=== PATIENT | female | born 1995 | race Caucasian/White ===

== ENCOUNTER 2018-06-17 19:40 | Outpatient (CLI) | payer OTHER ==
[2018-06-17 20:26] LABS: APPEARANCE,URINE CLEAR; BILIRUBIN,URINE NEGATIVE (NEGATIVE); COLOR,URINE YELLOW; GLUCOSE, URINE NEGATIVE (NEGATIVE); KETONES,URINE NEGATIVE (NEGATIVE); LEUKOCYTE ESTERASE,URINE NEGATIVE (NEGATIVE); NITRITE,URINE NEGATIVE (NEGATIVE); PROTEIN,URINE NEGATIVE (NEGATIVE); URINE SPECIFIC GRAVITY 1.012; UROBILINOGEN,URINE NEGATIVE mg/dL (<2.0)
[2018-06-17 20:59] LABS: URINE AMPHETAMINES SCREEN NEGATIVE; URINE BARBITURATES SCREEN NEGATIVE; URINE BENZODIAZEPINES SCREEN NEGATIVE; URINE COCAINE SCREEN NEGATIVE; URINE MARIJUANA (THC) SCREEN NEGATIVE; URINE METHADONE SCREEN NEGATIVE; URINE PHENCYCLIDINE SCREEN NEGATIVE
== END 2018-06-17 20:54 | disposition home or self-care (01) ==
LOC: LC 19:40
PROVIDERS: ATTEND Obstetrics & Gynecology
DX: O46.93 Antepartum hemorrhage, unspecified, third trimester (principal); Z3A.29 29 weeks gestation of pregnancy
CPT/HCPCS: 80307; 81001

== ENCOUNTER 2018-07-30 15:53 | Outpatient (CLI) | payer OTHER ==
[2018-07-30 17:07] LABS: APPEARANCE,URINE SLIGHTLY-CLOUDY; BILIRUBIN,URINE NEGATIVE (NEGATIVE); COLOR,URINE YELLOW; GLUCOSE, URINE NEGATIVE (NEGATIVE); KETONES,URINE NEGATIVE (NEGATIVE); LEUKOCYTE ESTERASE,URINE LARGE (NEGATIVE); NITRITE,URINE NEGATIVE (NEGATIVE); PROTEIN,URINE NEGATIVE (NEGATIVE); URINE SPECIFIC GRAVITY 1.006; UROBILINOGEN,URINE NEGATIVE mg/dL (<2.0)
--- NOTE | 2018-07-30 17:14 | Non Stress Test Report ---
Non Stress Test Datetime Report Generated by CPN: 07/30/2018 17:14 DEMOGRAPHIC EGA NST: 35.3 INDICATION Indication for Study: Ordered by Provider VITAL SIGNS Temperature - NST: 98.4 Pulse - NST: 90 RESP - NST: 18 NBPSYS NST: 116 NBPDIA NST: 71 MONITORING Monitor Explained: Monitor Explained; Test Explained; Patient Verbalized Understanding Time on Monitor: 07/30/2018 16:15 Time off Monitor: 07/30/2018 17:04 NST Duration: 49 NST INTERVENTIONS NST Interventions: PO Hydration Physician Notified NST: A Pendleton CNM BABY A: [id number] BABY A Movement : Present Contraction Frequency : 0 FHR Baseline : 130 Accelerations : 15X15 Decelerations : None Variability : Moderate 6-25bpm NST Review: Meets Criteria for Reactive NST NST Review and Verified By : Joel De Los Santos RN NST Results: Reactive NST REPORT Report Trigger: Send Report
[2018-07-30 17:29] LABS: URINE AMPHETAMINES SCREEN NEGATIVE; URINE BARBITURATES SCREEN NEGATIVE; URINE BENZODIAZEPINES SCREEN NEGATIVE; URINE COCAINE SCREEN NEGATIVE; URINE MARIJUANA (THC) SCREEN NEGATIVE; URINE METHADONE SCREEN NEGATIVE; URINE PHENCYCLIDINE SCREEN NEGATIVE
== END 2018-07-30 17:14 | disposition home or self-care (01) ==
LOC: LC 15:53
PROVIDERS: ATTEND Obstetrics & Gynecology
PROC: 4A1HXCZ Monitoring of Products of Conception, Cardiac Rate, External Approach (ICD-10-PCS; principal; 2018-07-30)
DX: O47.03 False labor before 37 completed weeks of gestation, third trimester (principal); O46.93 Antepartum hemorrhage, unspecified, third trimester; Z3A.35 35 weeks gestation of pregnancy
CPT/HCPCS: 59025; 80307; 81001

== ENCOUNTER 2018-08-23 17:11 | Outpatient (CLI) | payer OTHER ==
[2018-08-23 17:49] LABS: APPEARANCE,URINE SLIGHTLY-CLOUDY; BILIRUBIN,URINE NEGATIVE (NEGATIVE); COLOR,URINE YELLOW; GLUCOSE, URINE NEGATIVE (NEGATIVE); KETONES,URINE NEGATIVE (NEGATIVE); LEUKOCYTE ESTERASE,URINE LARGE (NEGATIVE); NITRITE,URINE NEGATIVE (NEGATIVE); PROTEIN,URINE NEGATIVE (NEGATIVE); URINE SPECIFIC GRAVITY 1.016; UROBILINOGEN,URINE NEGATIVE mg/dL (<2.0)
--- NOTE | 2018-08-23 17:55 | Non Stress Test Report ---
Non Stress Test Datetime Report Generated by CPN: 08/23/2018 17:54 DEMOGRAPHIC Test Number: 2 EGA NST: 38.6 INDICATION Indication for Study: Ordered by Provider MONITORING Monitor Explained: Monitor Explained; Test Explained; Patient Verbalized Understanding Time on Monitor: 08/23/2018 17:29 Time off Monitor: 08/23/2018 17:53 NST Duration: 24 NST INTERVENTIONS BABY A: [id number] BABY A Movement : Present Contraction Frequency : 4-5 FHR Baseline : 140 Accelerations : 15X15 Decelerations : None Variability : Moderate 6-25bpm NST Review: Meets Criteria for Reactive NST NST Review and Verified By : S Ciara RNC NST Results: Reactive NST REPORT Report Trigger: Send Report
[2018-08-23 18:03] LABS: URINE AMPHETAMINES SCREEN NEGATIVE; URINE BARBITURATES SCREEN NEGATIVE; URINE BENZODIAZEPINES SCREEN NEGATIVE; URINE COCAINE SCREEN NEGATIVE; URINE MARIJUANA (THC) SCREEN NEGATIVE; URINE METHADONE SCREEN NEGATIVE; URINE PHENCYCLIDINE SCREEN NEGATIVE
== END 2018-08-23 18:00 | disposition home or self-care (01) ==
LOC: LC 17:11
PROVIDERS: ATTEND Obstetrics & Gynecology
PROC: 4A1HXCZ Monitoring of Products of Conception, Cardiac Rate, External Approach (ICD-10-PCS; principal; 2018-08-23)
DX: O47.1 False labor at or after 37 completed weeks of gestation (principal); Z3A.38 38 weeks gestation of pregnancy
CPT/HCPCS: 59025; 80307; 81005; 84112

== ENCOUNTER 2018-08-30 14:39 | Outpatient (CLI) | payer OTHER | END 2018-08-30 15:33 | disposition home or self-care (01) | LOC: LC 14:39 | PROVIDERS: ATTEND Student in an Organized Health Care Education/Training Program | PROC: 4A1HXCZ Monitoring of Products of Conception, Cardiac Rate, External Approach (ICD-10-PCS; principal; 2018-08-30) | DX: O47.1 False labor at or after 37 completed weeks of gestation (principal); Z3A.39 39 weeks gestation of pregnancy | CPT/HCPCS: 59025 ==

== ENCOUNTER 2018-08-31 10:19 | Inpatient (IN) | payer OTHER ==
[2018-08-31] MEDS ORDERED: PENICILLIN G POTASSIUM 5,000,000 UNIT in DEXTROSE 5%-WATER 100 ML IV ONE (10:42)
[2018-08-31] MEDS ORDERED: RINGERS SOLUTION,LACTATED 300 ML IV ONE (10:42)
[2018-08-31] MEDS ORDERED: RINGERS SOLUTION,LACTATED 1,000 ML IV PRN (10:42)
[2018-08-31] MEDS ORDERED: OXYTOCIN/NORMAL SALINE 20 UNIT/1,000 ML RTUINJ IV PRN ×2 (10:46→14:51)
[2018-08-31 11:00] LABS: APPEARANCE,URINE SLIGHTLY-CLOUDY; BILIRUBIN,URINE NEGATIVE (NEGATIVE); COLOR,URINE YELLOW; GLUCOSE, URINE NEGATIVE (NEGATIVE); KETONES,URINE NEGATIVE (NEGATIVE); LEUKOCYTE ESTERASE,URINE NEGATIVE (NEGATIVE); NITRITE,URINE NEGATIVE (NEGATIVE); PROTEIN,URINE NEGATIVE (NEGATIVE); URINE SPECIFIC GRAVITY 1.016; UROBILINOGEN,URINE NEGATIVE mg/dL (<2.0)
[2018-08-31] MEDS ORDERED: MISOPROSTOL 0.2 MG TABLET ONE (11:11)
[2018-08-31] MEDS ORDERED: OXYTOCIN 10 UNIT/ML VIAL ONE (11:11)
[2018-08-31] MEDS ORDERED: PENICILLIN G-K 5 MILLION UNIT VIAL ONE (11:12)
[2018-08-31] MEDS ORDERED: OXYTOCIN/NORMAL SALINE 20 UNIT/1,000 ML RTUINJ ONE (11:12)
[2018-08-31] MEDS ORDERED: LIDOCAINE 1% INJ-PF (10 MG/ML) 30 ML SDV ONE (11:12)
[2018-08-31 11:14] LABS: URINE AMPHETAMINES SCREEN NEGATIVE; URINE BARBITURATES SCREEN NEGATIVE; URINE BENZODIAZEPINES SCREEN NEGATIVE; URINE COCAINE SCREEN NEGATIVE; URINE MARIJUANA (THC) SCREEN NEGATIVE; URINE METHADONE SCREEN NEGATIVE; URINE PHENCYCLIDINE SCREEN NEGATIVE
--- NOTE | 2018-08-31 11:15 | Admission Physical ---
Datetime Report Generated by CPN: 08/31/2018 11:15 CURRENT ADMISSION Hx Assessment: The History has been Reviewed and is Current Chief Complaint: Uterine Contractions; Suspected Ruptured Membranes Indication for Induction: Not Applicable Admit Impression : Term, Intrauterine ; No Active Labor ALLERGIES Medication Allergies: Yes Medication Allergies: nitrofurantoin/Hives (08/31/2018) Latex: No Latex Allergies OBSTETRICAL HISTORY EDC: 08/31/2018 00:00 : 1 Para: 0 Term: 0 : 0 SAB: 0 IAB: 0 Ectopic: 0 Livin Cesareans: 0 VBACs: 0 Multiple Births: 0 Gestational Diabetes: No Rh Sensitization: No Incompetent Cervix: No JOHN: No Infertility: No ART Treatment: No Uterine Anomaly: No IUGR: No Hx Previous C/S: No Macrosomia: No Hx Loss/Stillborn: No PIH: No Hx : No Placenta Previa/Abruption: No Depression/PP Depression: No PTL/PROM: No Post Hemorrhage: No Current Procedures: Ultrasound Obstetrical History Comments: G1-Current SEE RECORDS Alcohol: No Marijuana : No Cocaine: No Other Illicit Drugs: No Cigarettes: Never Smoker. [id number] MEDICAL HISTORY Diabetes: No Blood Transfusion: No Pulmonary Disease (Asthma, TB): No Breast Disease: No Hypertension: No Development Coach Surgery: No Heart Disease: No Hosp/Surgery: No Autoimmune Disorder: No Anesthetic Complications: No Kidney Disease: No Abnormal Pap Smear: No Neuro/Epilepsy: No Psychiatric Disorders: No Other Medical Diseases: No Hepatitis/Liver Disease: No Significant Family History: No Varicosities/Phlebitis: No Trauma/Violence : No Thyroid Dysfunction: No INFECTIOUS HISTORY Gonorrhea: No Genital Herpes: No Chlamydia: No Tuberculosis: No Syphilis: No Hepatitis: No HIV/AIDS Exposure: No Rash or Viral Illness: No HPV: No PHYSICAL EXAM General: Normal HEENT: Deferred Neurologic: Normal Thyroid: Normal Heart: Normal Lungs: Normal Breast: Deferred Back: Normal Abdomen: Normal Genitourinary Exam: Normal Extremities: Normal DTRs: Normal Pelvic Type: Adequate Physical Exam Comments: + GBS G1 Vital Signs: Reviewed FETUS A EGA: 40.0 Monitoring: External US Decelerations: None Admit Comment: 23 y/o G1 admitted to LD for ROM about a hour ago, + GBS, irreg uc's, Cat 1 strip, Hsb at BS, POC discussed, will augment with Pitocin if needed, unsure of epidural, plans to breastfeed PLANS FOR LABOR AND DELIVERY Labor and Delivery: None Pain Management: Natural Feeding Preference: Formula Benefit of Breast Feed Discussed: Yes Circumcision: Yes INFORMED CONSENT Assignment: Carol Ann Rosado MD Signature: with User ID: [email or web address] : with User ID: [email or web address]
[2018-08-31 12:31] LABS: ABSOLUTE LYMPHOCYTES (AUTO) 1.1 10^3/uL (0.5-4.7); ABSOLUTE MONOCYTES (AUTO) 0.6 10^3/uL (0.1-1.4); ABSOLUTE NEUT (AUTO) 6.7 10^3/uL (1.7-8.2); BASOPHILS % (AUTO) 0.2 % (0-2); EOSINOPHILS % (AUTO) 0.3 % (0-6); HEMATOCRIT 36.8 % (36.0-47.0); HEMOGLOBIN 12.7 g/dL (12.0-15.5); LYMPHOCYTES % (AUTO) 13.2 % (13-45); MEAN CORPUSCULAR HEMOGLOBIN 29.6 pg (27.0-33.4); MEAN CORPUSCULAR HGB CONC 34.4 g/dL (32.0-36.0); MEAN CORPUSCULAR VOLUME 86 fl (80-97); MONOCYTES % (AUTO) 6.9 % (3-13); RED BLOOD COUNT 4.28 10^6/uL (3.72-5.28); RED CELL DISTRIBUTION WIDTH 13.6 % (11.5-14.0); SEGMENTED NEUTROPHILS % (AUTO) 79.4 % (42-78); TOTAL CELLS COUNTED % (AUTO) 100 %; WHITE BLOOD COUNT 8.4 10^3/uL (4.0-10.5)
[2018-08-31] MEDS ORDERED: NALBUPHINE HCL INJ 10 MG/1 ML AMPULE ONE (12:43)
[2018-08-31] MEDS ORDERED: NALBUPHINE HCL INJ 10 MG/1 ML AMPULE INJ ONE (12:49)
[2018-08-31 13:03] LABS: PLATELET COUNT 69 10^3/uL (150-450)
[2018-08-31] MEDS ORDERED: DIPH/PERTUSS(ACELL)/TETANUS VAC/PF 0.5 ML SYR (>=10YO) IM PRN (14:51)
[2018-08-31] MEDS ORDERED: ACETAMINOPHEN 650 MG SUPP.RECT PR PRN (14:51)
[2018-08-31] MEDS ORDERED: ACETAMINOPHEN WITH CODEINE #3 TABLET PO PRN (14:51)
[2018-08-31] MEDS ORDERED: PROMETHAZINE HCL 25 MG SUPP.RECT PR PRN (14:51)
[2018-08-31] MEDS ORDERED: PROMETHAZINE HCL INJ 25 MG/1 ML VIAL IV PRN (14:51)
[2018-08-31] MEDS ORDERED: MAGNESIUM HYDROXIDE SUSP 30 ML UDCUP PO PRN (14:51)
[2018-08-31] MEDS ORDERED: DIPHENHYDRAMINE HCL 25 MG CAPSULE PO PRN (14:51)
[2018-08-31] MEDS ORDERED: PSEUDOEPHEDRINE HCL 30 MG TABLET PO PRN (14:51)
[2018-08-31] MEDS ORDERED: PROMETHAZINE HCL 25 MG TABLET PO PRN (14:51)
[2018-08-31] MEDS ORDERED: NA PHOS,M-B/NA PHOS,DI-BA (ADULT) 133 ML ENEMA PR PRN (14:51)
[2018-08-31] MEDS ORDERED: MEASLES,MUMPS&RUBELLA VACC/PF 0.5 ML VIAL SUBCUT PRN (14:51)
[2018-08-31] MEDS ORDERED: GLYCERIN/WITCH HAZEL LEAF 1 EACH MED..PAD TP PRN (14:51)
[2018-08-31] MEDS ORDERED: DIBUCAINE 1% OINTMENT 28 GM TP PRN (14:51)
[2018-08-31] MEDS ORDERED: POLYETHYLENE GLYCOL 3350 POWDER 17 GM/1 PACKET PO PRN (15:51)
[2018-08-31] MEDS ORDERED: METHYLERGONOVINE MALEATE INJ/PF 0.2 MG/1 ML AMPULE ONE (16:39)
--- NOTE | 2018-08-31 17:03 | Delivery Summary ---
Del Sum A-C Datetime Report Generated by CPN: 08/31/2018 17:03 DELIVERY PERSONNEL DELIVERY PERSONNEL: [id number] Delivery Doctor:: Carol Ann Rosado MD Labor and Delivery Nurse:: Wing Norris RNtable tender Nurse:: Giovanna Rosado RN Nursery Nurse:: Kasia Todd RN Automation And Controls Supervisor/ROLLED MATERIALS WORKER: Riana Escamilla, ST MATERNAL INFORMATION Delivery Anesthesia: None Medications After Delivery: Pitocin Bolus-Please Comment; Pitocin Drip 20 Units/1000ml NSS Meds After Delivery Comment: Pitocin 20 units in 1 L NS bolusing per order Estimated Blood Loss (ml): 350 Maternal Complications: None LABOR SUMMARY EDC: 08/31/2018 00:00 No. Babies in Womb: 1 Attempted: No Labor Anesthesia: IV Sedation LABOR INFORMATION Reason for Induction: Not Applicable Onset of Labor: 08/31/2018 13:44 Complete Dilatation: 08/31/2018 13:53 Oxytocin: N/A Group B Beta Strep: positive Antibiotics # of Doses: 1 Antibiotics Time of Last Dose: 1125 Name of Antibiotic Given: PCN Steroids Given: None Reason Steroids Not Administered: Not Applicable MEMBRANES Membranes Rupture Method: Spontaneous Rupture of Membranes: 08/31/2018 09:45 Length of Rupture (hr): 5.07 Amniotic Fluid Color: Clear Amniotic Fluid Amount: Moderate Amniotic Fluid Odor: Normal STAGES OF LABOR Stage 1 hr: 0 Stage 1 min: 9 Stage 2 hr: 0 Stage 2 min: 56 Stage 3 hr: 0 Stage 3 min: 4 Total Time in Labor hr: 1 Total Time in Labor min: 9 VAGINAL DELIVERY Episiotomy: None Laceration #1: Perineal; Vaginal Laceration Extension #1: Fourth Degree Laceration Repair: Yes Laceration Repair Note: rectal mucosa repaired with 3-0 chromic with running locked stitch. anal sphincter muscle repaired with box stitch of 2-0 chromic. vaginal mucosa repaired with running stitch of 2-0 chromic Sponge Count Correct: Yes Sharps Count Correct: N/A CSECTION DELIVERY Primary Indication: N/A Secondary Indication: N/A CSection Incidence: N/A Labor: N/A Elective: N/A CSection Incision: N/A BABY A INFORMATION Delivery Date/Time: 08/31/2018 14:49 Method of Delivery: Vaginal Born in Route : No : N/A Forceps: N/A Vacuum Extraction: Successful Shoulder Dystocia : No ASSISTED DELIVERY BABY A Catheter Prior to Procedure: Yes Station Vacuum/Forcep Apply: 2 Vacuum Number of Pulls: 3 Vacuum Number of PopOffs: 2 Reduce Pressure btwn Ctx: Yes Vacuum Crime Victim Specialist: [place] Total Time Vacuum Applied: 7 minutes PRESENTATION/POSITION BABY A Presentation: Cephalic Cephalic Presentation: Vertex Vertex Position: Right Occipital Anterior Breech Presentation: N/A PLACENTA INFORMATION BABY A Placenta Delivery Time : 08/31/2018 14:53 Placenta Method of Delivery: Spontaneous Placenta Status: Delivered SCORES BABY A Heart Rate 1 min: >100 bpm Resp Effort 1 min: Good Cry Reflex Irritability 1 min: Cough or Sneeze or Pulls Away Muscle Tone 1 min: Active Motion Color 1 min: Blue/Pale Resuscitation Effort 1 min: Tactile Stimulation SCORE 1 MIN: 8 Heart Rate 5 min: >100 bpm Resp Effort 5 min: Good Cry Reflex Irritability 5 min: Cough or Sneeze or Pulls Away Muscle Tone 5 min: Active Motion Color 5 min: Body [place], Extremities Blue Resuscitation Effort 5 min: N/A SCORE 5 MIN: 9 INFANT INFORMATION BABY A Gestational Age at Delivery: 40.0 Gestational Status: Full Term- 39- 40.6 Weeks Outcome : Liveborn Infant Condition : Stable Sex: Male IDENTIFICATION BABY A Verification Date/Time: 08/31/2018 15:09 ID Band Number: [id number] Mother's Name Verified: Yes Infant RN Verifying : Corky Rosado RN, C. Sedgwick, RN WEIGHT/LENGTH BABY A Infant Birthweight (gm): 4795 Infant Weight (lb): 10 Weight (oz): 9 Infant Length (in): 22.00 Infant Length (cm): 55.88 CORD INFORMATION BABY A No. Cord Vessels: 3 Nuchal Cord : N/A Cord Blood Taken: Yes-For Eval (Mom's Blood Type - or O+) Suction: None ASSESSMENT BABY A Skin to Skin: Yes BABY B INFORMATION : N/A SIGNATURES Signature: with User ID: [email or web address]
[2018-08-31] MEDS ORDERED: METHYLERGONOVINE MALEATE INJ/PF 0.2 MG/1 ML AMPULE IM ONE (17:30)
[2018-08-31] MEDS: FERROUS SULFATE 325 MG TABLET PO SCH (18:29)
[2018-08-31] MEDS: DOCUSATE SODIUM 100 MG CAPSULE PO SCH (18:29)
[2018-08-31] MEDS: PENICILLIN G POTASSIUM 2,500,000 UNIT in DEXTROSE 5%-WATER 50 ML IV SCH ×2 (18:30→19:01)
[2018-08-31] MEDS: BENZOCAINE/MENTHOL AEROSOL SPRAY 56 ML TOP PRN (18:32)
[2018-08-31] MEDS: FAMOTIDINE 20 MG TABLET PO SCH (21:29)
[2018-08-31] MEDS ORDERED: IBUPROFEN 800 MG TABLET PO SCH (22:00)
[2018-09-01 07:17] LABS: HEMATOCRIT 30.6 % (36.0-47.0); HEMOGLOBIN 10.7 g/dL (12.0-15.5); MEAN CORPUSCULAR HEMOGLOBIN 29.5 pg (27.0-33.4); MEAN CORPUSCULAR HGB CONC 34.9 g/dL (32.0-36.0); MEAN CORPUSCULAR VOLUME 85 fl (80-97); RED BLOOD COUNT 3.62 10^6/uL (3.72-5.28); RED CELL DISTRIBUTION WIDTH 13.8 % (11.5-14.0); WHITE BLOOD COUNT 11.9 10^3/uL (4.0-10.5)
[2018-09-01 07:57] LABS: PLATELET COUNT 75 10^3/uL (150-450)
[2018-09-01] MEDS: ACETAMINOPHEN WITH CODEINE #3 TABLET PO PRN ×2 (08:21→14:26)
[2018-09-01] MEDS: SENNOSIDES/DOCUSATE 8.6-50 MG 1 EACH TABLET PO SCH (10:11)
[2018-09-01] MEDS: DOCUSATE SODIUM 100 MG CAPSULE PO SCH ×2 (10:11→17:38)
[2018-09-01] MEDS: FERROUS SULFATE 325 MG TABLET PO SCH ×2 (10:11→17:38)
[2018-09-01] MEDS: PRENATAL VITAMIN W DHA CAPSULE PO SCH (10:11)
[2018-09-01] MEDS: FAMOTIDINE 20 MG TABLET PO SCH ×2 (10:11→21:02)
--- NOTE | 2018-09-01 13:13 | PDOC PROGRESS REPORT ---
Subjective-OB Progress Note for:: 09/01/18 Subjective: Doing well Physical Exam (OB) Vital Signs: Temp Pulse Resp BP Pulse Ox 98.4 F 86 16 128/78 H 98 09/01/18 07:38 09/01/18 07:38 09/01/18 07:38 09/01/18 07:38 09/01/18 07:38 Intake & Output 08/31/18 09/01/18 09/02/18 06:59 06:59 06:59 Intake Total 500 320 Balance 500 320 Weight 93.3 kg - General General Appearance: Appears well - fundus firm, ext nontender - PIH/Pre-Eclampsia Clonus: Negative Headache: Absent Epigastric Pain: No Visual Changes: No - Lochia Lochia Amount: Small 10-25 ml Lochia Color: Rubra/Red - Abdomen Description: Soft, Round Hernia Present: No Fundal Description: Firm, Midline Fundal Height: u/u - u/2 Objective-Diagnostic Laboratory: 09/01/18 07:00 09/01/18 07:00 WBC 11.9 H RBC 3.62 L Hgb 10.7 L Hct 30.6 L MCV 85 MCH 29.5 MCHC 34.9 RDW 13.8 Plt Count 75 L Assessment and Plan(PN) - Assessment and Plan (1) Fourth degree laceration of perineum, delivered, current hospitalization Is this a current diagnosis for this admission?: Yes Plan:: continue care - Time Spent with Patient Time with patient: Less than 15 minutes - Disposition Anticipated Discharge: Home Within: within 48 hours
[2018-09-02] MEDS: ACETAMINOPHEN WITH CODEINE #3 TABLET PO PRN ×2 (08:27→14:15)
[2018-09-02] MEDS: PRENATAL VITAMIN W DHA CAPSULE PO SCH (09:39)
[2018-09-02] MEDS: DOCUSATE SODIUM 100 MG CAPSULE PO SCH (09:39)
[2018-09-02] MEDS: FAMOTIDINE 20 MG TABLET PO SCH (09:39)
[2018-09-02] MEDS: FERROUS SULFATE 325 MG TABLET PO SCH (09:39)
[2018-09-02] MEDS: SENNOSIDES/DOCUSATE 8.6-50 MG 1 EACH TABLET PO SCH (09:39)
--- NOTE | 2018-09-02 09:59 | PDOC DISCHARGE SUMMARY ---
Final Diagnosis Discharge Date: 09/02/18 - PP Day #2, doing well, s/p VAD of 10 lb baby w/ 4th degree laceration. bottlefeeding, O+, rubella immune. - Final Diagnosis (1) Normal course Is this a current diagnosis for this admission?: Yes (2) Fourth degree laceration of perineum, delivered, current hospitalization Is this a current diagnosis for this admission?: Yes (3) Vacuum extraction, delivered, current hospitalization Is this a current diagnosis for this admission?: Yes Discharge Data - Discharge Medication Prescriptions: Acetaminophen with Codeine [Tylenol #3 Tablet] 1 each PO Q4HP PRN #30 tablet PRN Reason: Home Medications: Vits96/Iron Fum/Folic [ Tablet] 1 each PO DAILY 06/17/18 Acetaminophen with Codeine [Tylenol #3 Tablet] 1 each PO Q4HP PRN #30 tablet 09/02/18 Docusate Sodium [Colace 100 mg Capsule] 100 mg PO BID capsule 09/02/18 Reason(s) for Admission: Onset of Labor Procedures: Ultrasound Intrapartum Procedure(s): Vacuum Extraction Complication(s): Laceration-Vaginal Laceration-Degree: 4th - Diagnosis Test Laboratory: Temp Pulse Resp BP Pulse Ox 97.8 F 74 17 124/76 100 09/02/18 07:46 09/02/18 07:46 09/02/18 07:46 09/02/18 07:46 09/02/18 07:46 08/31/18 08/31/18 09/01/18 10:27 11:58 07:00 RBC 4.28 3.62 L Hgb 12.7 10.7 L Hct 36.8 30.6 L Urine Opiates Screen NEGATIVE - Discharge information/Instructions Discharge Activity: Activity As Tolerated, No Lifting Over 10 Pounds, Pelvic Rest Discharge Diet: As Tolerated, Regular Disposition: HOME, SELF-CARE Follow up with: [facility] in: 4, Weeks
[2018-09-02] MEDS: BENZOCAINE/MENTHOL AEROSOL SPRAY 56 ML TOP PRN (12:24)
[2018-09-02 13:50] VITALS: BP 140/72
== END 2018-09-02 15:01 | disposition home or self-care (01) | DRG 768 ==
LOC: LC 10:19 → LR 10:38 → 2S 17:00
PROVIDERS: ADMIT Obstetrics & Gynecology; ATTEND Obstetrics & Gynecology
PROC: 10D07Z6 Extraction of Products of Conception, Vacuum, Via Natural or Artificial Opening (ICD-10-PCS; principal; 2018-08-31)
PROC: 0DQP0ZZ Repair Rectum, Open Approach (ICD-10-PCS; 2018-08-31)
PROC: 4A1HXCZ Monitoring of Products of Conception, Cardiac Rate, External Approach (ICD-10-PCS; 2018-08-31)
DX: O70.3 Fourth degree perineal laceration during delivery (principal); O36.63X0 Maternal care for excessive fetal growth, third trimester, not applicable or unspecified; O99.824 Streptococcus B carrier state complicating childbirth; Z3A.40 40 weeks gestation of pregnancy; Z37.0 Single live birth
CPT/HCPCS: 36415; 80307; 81005; 84112; 85025; 85027; 86592; 86850; 86900; 86901; J2210; J2300; J2540; J2590; J3490